=== PATIENT | male | born 1950 | race African-American/Black ===

== ENCOUNTER → 2019-12-30 | Outpatient (CLI) | payer MEDICARE, MEDICAID ==
[2019-12-30 13:58] LABS: BLOOD UREA NITROGEN 13 mg/dL (7-20); CHLORIDE 92 mmol/L (98-107); GLUCOSE 76 mg/dL (75-110)
[2019-12-30 14:09] LABS: ANION GAP 7 (5-19); CARBON DIOXIDE 39 mmol/L (22-30)
== END ==
LOC: OD 12:41
PROVIDERS: ATTEND Internal Medicine Pulmonary Disease
DX: J96.11 Chronic respiratory failure with hypoxia (principal); F17.210 Nicotine dependence, cigarettes, uncomplicated
CPT/HCPCS: 36415; 80048; 85379